=== PATIENT | female | born 1975 | race Caucasian/White ===

== ENCOUNTER 2018-05-22 15:20 | Emergency (ER) | payer OTHER ==
[~2018-05-22] VITALS: Ht 167.6 cm; Wt 90.1 kg
[~2018-05-22 15:20] MED LIST: CYCL-259 PO; ETAN50DI2 INJ; HYDR-3240 PO; HYDR-3307 PO; ONDA4TAB10 PO; SULI200T2 PO; TAMS-11 PO
[2018-05-22 15:23] VITALS: BP 151/96
[2018-05-22] MEDS ORDERED: SILVER SULF. CRM 1% , 25GM ONE (16:18)
[2018-05-22] MEDS ORDERED: SILVER SULF. CRM 1% , 25GM TP ONE (16:30)
== END 2018-05-22 16:46 | disposition home or self-care (01) ==
LOC: ED 16:36
DX: T23.231A Burn of second degree of multiple right fingers (nail), not including thumb, initial encounter (principal); X15.0XXA Contact with hot stove (kitchen), initial encounter; Y93.89 Activity, other specified; Y92.89 Other specified places as the place of occurrence of the external cause; Y99.8 Other external cause status
CPT/HCPCS: 16020; 99284